=== PATIENT | female | born 1985 | race Caucasian/White ===

== ENCOUNTER 2024-01-11 17:12 | Emergency (ER) | payer BC, SELFPAY ==
[2024-01-11 17:22] VITALS: BP 111/67; PULSE 87; RESP 16; TEMP 36.8; O2SAT 98; BMI 18.6
[2024-01-11 17:31] VITALS: BP 112/69; PULSE 79; RESP 20; O2SAT 97
--- NOTE | 2024-01-11 17:37 | EKG_ITS ---
[address] [address] [address] [address] Test Date: 2024-01-11 Pat Name: Meagan Abreu Department: [facility] Room: Gender: Female Sales Development Executive: PEDRO : 1985 Requested By: Order Number: [id number] Reading MD: Delmer López Measurements Intervals [place] Rate: 78 P: 77 OK: 124 QRS: 86 QRSD: 92 T: 54 QT: 390 QTc: 444 Interpretive Statements Normal sinus rhythm Electronically Signed On 01-14-2024 18:49:53 PST by Delmer López
--- NOTE | 2024-01-11 17:40 | PC.NURSE ---
reports normal resting heart rate is in 80's and today resting heart rate has been in 90's and just to stand heart rate will go up above 100 or more without lots of activity or doing anything. sent her by [email or web address] in wheelchair
[2024-01-11 18:00] VITALS: BP 91/63; PULSE 83; RESP 15; O2SAT 97
[2024-01-11 18:30] VITALS: BP 100/62; PULSE 74; RESP 20; O2SAT 97
--- NOTE | 2024-01-11 18:37 | ED_ITS ---
HPI - Arrhythmia/Palpitations General Chief Complaint: Arrhythmia/Palpitations Stated Complaint: sent by [facility], heart rate issue Time Seen by Provider: 01/11/24 18:09 Source: patient Mode of arrival: Wheelchair History of Present Illness HPI narrative: 38-year-old female referred from walk-in clinic for further evaluation of heart palpitation symptoms. History of anxiety although she feels like her palpitation symptoms are not related to her anxiety, or at least are different than her anxiety symptoms. No associated syncope or presyncope. No associated chest pain. No associated diaphoresis, nausea, vomiting. No focal weakness to face arm or leg. Symptoms are intermittent in nature. No particular activity or position that seems to make the symptoms worse or bring the symptoms on, when present no particular activity or position made the symptoms improve or go away. Denies fevers chills. Denies shortness of breath. Related Data Home Medications Medication Instructions Recorded Confirmed clobetasol 0.05 % topical ointment 1 applic topical DAILY 06/25/23 10/01/23 lorazepam 0.5 mg tablet 0.5 mg PO DAILY PRN 06/25/23 10/01/23 albuterol sulfate 90 mcg/actuation inhalation 10/01/23 10/01/23 aerosol inhaler rizatriptan 5 mg disintegrating mg PO 01/11/24 01/11/24 tablet Previous Rx's Medication Instructions Recorded estradiol 0.05 mg/24 hr semiweekly 1 patch transdermal 2XW #8 ea 06/25/23 transdermal patch (Vivelle-Dot) progesterone micronized 100 mg 100 mg PO BEDTIME #30 caps 06/25/23 capsule (Prometrium) Allergies Allergy/AdvReac Type Severity Reaction Status Date / Time codeine Allergy Severe vomitting Verified 01/11/24 17:21 meperidine [From Demerol] Allergy Severe vomitting Verified 01/11/24 17:21 sumatriptan [From Imitrex] Allergy Severe Swelling Verified 01/11/24 17:21 of Lip/Tongue/Throat Review of Systems Review of Systems Narrative: See HPI Patient History Medical History (Updated 01/11/24 @ 21:23 by Johnathon Lopez MD) Eczema Alopecia Acne Asthma Allergies Anxiety Migraines Chicken pox (~1994) Kidney stones Pituitary adenoma (~2005) Surgical History (Updated 08/08/23 @ 19:10 by Shauna Linn) Anesthesia History of hysterectomy (~2017) S/P foot surgery, right (~2003) S/P foot surgery, left (~2002) Family History (Updated 08/08/23 @ 19:11 by Shauna Linn) Father Stroke Grandfather History of heart disease Grandfather History of heart disease Grandmother Cancer History of heart disease Social History Smoking Status: Current every day smoker Smoking Status: Current every day smoker Exam Narrative Exam Narrative: GENERAL: Well-developed patient, cooperative, no distress HEAD: Atraumatic. Normocephalic. EYES: Pupils equal round and reactive. Extraocular motions intact. No scleral icterus. No injection or drainage. ENT: Nose without bleeding, purulent drainage. Throat without erythema, tonsillar hypertrophy or exudate. Airway patent. NECK: Trachea midline. Non tender CARDIOVASCULAR: Regular rate and rhythm without murmurs, gallops, or rubs. RESPIRATORY: Clear to auscultation. Breath sounds equal bilaterally. No wheezes, rales, or rhonchi. GASTROINTESTINAL: Abdomen soft, non-tender, nondistended. EXTREMITIES: No edema or joint tenderness. BACK: Nontender without deformity or crepitance. No flank tenderness. NEURO: AOx3. Motor functions grossly nonfocal SKIN: No rash or erythema of visible areas Initial Vital Signs Initial Vital Signs: Vital Signs Temperature 98.3 F 01/11/24 17:22 Pulse Rate 87 01/11/24 17:22 Respiratory Rate 16 01/11/24 17:22 Blood Pressure 111/67 01/11/24 17:22 Pulse Oximetry 98 01/11/24 17:22 Oxygen Delivery Method Room Air 01/11/24 17:22 Course Orders Ordered: ED Orders 01/11/24 17:26 EKG-12 Lead Stat 01/11/24 18:56 XR chest 1V Stat EKG-12 Lead Stat 01/11/24 19:26 Complete Blood Count AUTO DIFF Stat 01/11/24 19:50 Comprehensive Metabolic Panel Stat Troponin & CK Cardiac Panel Stat Vital Signs Vital signs: Vital Signs - 8 hr 01/11/24 17:22 01/11/24 17:31 01/11/24 17:31 Temperature 98.3 F Pulse Rate 87 79 Respiratory Rate 16 20 Blood Pressure 111/67 112/69 Pulse Oximetry 98 97 Oxygen Delivery Method Room Air 01/11/24 18:00 11/02/24 18:00 01/11/24 18:30 Temperature Pulse Rate 83 74 Respiratory Rate 15 20 Blood Pressure 91/63 Pulse Oximetry 97 97 Oxygen Delivery Method Room Air 01/11/24 18:30 01/11/24 19:30 01/11/24 19:31 Temperature Pulse Rate 72 70 Respiratory Rate 18 16 Blood Pressure 100/62 113/71 113/71 Pulse Oximetry 98 98 Oxygen Delivery Method Room Air Room Air MDM - Arrhythmia/Palpitations Lab Data Attestation: I reviewed the patient's lab results. Lab results narrative: White blood cell count 9500, hemoglobin 14, platelets adequate. Basic metabolic panel unremarkable. Liver functions normal. Troponin negative/unmeasurable. 01/11/24 19:26 01/11/24 19:50 Labs: Lab Results 01/11/24 01/11/24 Range/Units 19:26 19:50 WBC 9.5 (4.5-11.0) X10^3/uL RBC 4.15 (4.0-5.2) X10^6/uL Hgb 14.0 (12.0-16.0) g/dL Hct 40.2 (36-46) % MCV 97.1 (80-100) fL MCH 33.8 (26-34) PG MCHC 34.8 (30-36) % RDW 12.5 (11.6-14.8) % Plt Count 336 (150-400) X10^3/uL Neut % (Auto) 62.6 (50-75) % Lymph % (Auto) 30.2 (25-40) % [place] % (Auto) 4.7 (3-14) % Eos % (Auto) 1.5 L (2-4) % Baso % (Auto) 1.0 (0-2) % Neut # (Auto) 5900 (6292-3539) /uL Lymph # (Auto) 2900 (8618-5825) /uL [place] # (Auto) 400 (0-900) /uL Eos # (Auto) 100 (0-450) /uL Baso # (Auto) 100 (0-100) /uL Sodium 137 (137-145) mmol/L Potassium 3.5 (3.4-5.1) mmol/L Chloride 107 (98-107) mmol/L Carbon Dioxide 25 (22-32) mmol/L BUN 9 (7-17) mg/dL Creatinine 0.52 (0.52-1.04) mg/dL Estimated GFR > 60 (>60) mL/min BUN/Creatinine Ratio 17.3 (6-22) Glucose 91 (70-100) mg/dL Calcium 9.0 (8.4-10.2) mg/dL Total Bilirubin 0.5 (0.2-1.3) mg/dL AST 21 (14-36) IU/L ALT 12 (<35) IU/L Alkaline Phosphatase 45 (38-126) U/L Total Creatine Kinase 66 (30-135) U/L Troponin I < 0.012 (0.01-0.034) ng/mL Total Protein 6.5 (6.3-8.2) g/dL Albumin 4.2 (3.5-5.0) g/dL Globulin 2.3 (1.7-4.1) g/dL Albumin/Globulin Ratio 1.8 (1.0-2.8) Imaging Data Chest x-ray: Radiologist's Impresson: [place] [address] XRay Report Signed Patient: Meagan Abreu MR#: [id number] : 1985 Acct:[id number] Age/Sex: 38 / F Date of Service: 01/11/24 Loc: Accession Number: [id number] Procedure: XR chest 1V Ordering Provider: Johnathon Lopez MD PROCEDURE: XR CHEST 1V INDICATIONS: chest pain TECHNIQUE: One view of the chest was acquired. COMPARISON: None. FINDINGS: Surgical changes and devices: None. Lungs and pleura: Lungs are clear. No pleural effusions or pneumothorax. Mediastinum: Mediastinal contours appear normal. Heart size is normal. Bones and chest wall: No suspicious bony lesions. Overlying soft tissues appear unremarkable. IMPRESSION: No acute cardiopulmonary abnormality is seen. Approved by: Nico Vargas M.D. on 01/11/2024 at 19:28 ECG Data Attestation: I personally reviewed and interpreted this ECG as follows: Interpretation: Normal sinus rhythm with rate of 78, no obvious ST segment elevation or depression changes. OR 124, QRS 92, QTC 444. MDM Narrative Medical decision making narrative: Irregular heartbeat sensation palpitations, history of anxiety, though patient feels this feels different than her anxiety symptoms. Screening EKG unremarkable. Chest x-ray negative. Labs pending. Her electrolytes unremarkable, troponin negative. Patient did not want to be in the monitoring longer, took herself off ED quality assurance monitor. Reassuring workup thus far, consider further cardiac monitoring as an outpatient, discussed ZIO patch, can be ordered by PCP, also given contact information for local armed security professional on-call tonight. Discharged home, stable, return precautions discussed. Discharge Plan Departure Patient Disposition: Home Clinical Impression: Heart palpitations Activity Restrictions/Additional Instructions: Heart palpitation symptoms, history of anxiety, however these symptoms felt different than anxiety, therefore workup initiated here. On the quality assurance monitor while it was worn there was no ectopy or irregular rhythm. Screening EKG reassuring. Chest x-ray no acute changes. Serum blood tests reassuring. Consider further cardiac monitoring as an outpatient, such as ZIO patch or other mobile device. Discuss further with your regular doctor early next week. Contact information also given for local armed security professional if useful for follow up as well. Return earlier to this/nearest emergency department for any change worsening symptoms or any concerns prior Prescriptions: No Action rizatriptan 5 mg tablet,disintegrating PO estradiol [Vivelle-Dot] 0.05 mg/24 hr patch semiweekly 1 patch transdermal 2XW Qty: 8 12RF Rx Instructions: apply 1 patch for 3 days alternating with 1 patch for 4 days each week for 3 wks per 4-wk cycle progesterone micronized [Prometrium] 100 mg capsule 100 mg PO BEDTIME Qty: 30 12RF lorazepam 0.5 mg tablet 0.5 mg PO DAILY PRN clobetasol 0.05 % ointment 1 applic topical DAILY albuterol sulfate 90 mcg/actuation HFA aerosol inhaler inhalation Referrals: Enrique Ravi MD [Primary Care Provider] - Lulu Hickman DO [Physician] - Stand Alone Forms: Patient Portal/API/Survey
--- NOTE | 2024-01-11 18:56 | DI.RAD.S_ITS ---
PROCEDURE: XR CHEST 1V INDICATIONS: chest pain TECHNIQUE: One view of the chest was acquired. COMPARISON: None. FINDINGS: Surgical changes and devices: None. Lungs and pleura: Lungs are clear. No pleural effusions or pneumothorax. Mediastinum: Mediastinal contours appear normal. Heart size is normal. Bones and chest wall: No suspicious bony lesions. Overlying soft tissues appear unremarkable. IMPRESSION: No acute cardiopulmonary abnormality is seen. Approved by: Nico Vargas M.D. on 01/11/2024 at 19:28
[2024-01-11 19:30] VITALS: BP 113/71; PULSE 72; RESP 18; O2SAT 98
[2024-01-11 19:31] VITALS: BP 113/71; PULSE 70; RESP 16; O2SAT 98
[2024-01-11 19:34] LABS: Add Manual Diff / Slide Review NO; Basophils Absolute Auto 100 /uL (0-100); Eosinophils Absolute Auto 100 /uL (0-450); Eosinophils Percent Auto 1.5 % (2-4); Hematocrit 40.2 % (36-46); Lymphocytes Absolute Auto 2900 /uL (1100-4500); Lymphocytes Percent Auto 30.2 % (25-40); Mean Corpuscular HGB Conc 34.8 % (30-36); Mean Corpuscular Hemoglobin 33.8 PG (26-34); Mean Corpuscular Volume 97.1 fL (80-100); Monocytes Absolute Auto 400 /uL (0-900); Monocytes Percent Auto 4.7 % (3-14); Neutrophils Absolute Auto 5900 /uL (1500-7000); Neutrophils Percent Auto 62.6 % (50-75); Platelet Count 336 X10^3/uL (150-400); Red Blood Cell Count 4.15 X10^6/uL (4.0-5.2); Red Cell Distribution Width 12.5 % (11.6-14.8); White Blood Cell Count 9.5 X10^3/uL (4.5-11.0)
--- NOTE | 2024-01-11 19:34 | PC.NURSE ---
patient/ (via phone) report patient has had episodes of increased heart rate, pale color, feeling very warm especially to stand or exert herself that feels different from when she has anxiety symptoms. They report she has a hx of both anemia and low vitamin d levels. PIV attempted, unable to place, labs obtained LAC.
[2024-01-11 20:06] LABS: Alanine Aminotransferase 12 IU/L (<35); Albumin 4.2 g/dL (3.5-5.0); Albumin Globulin Ratio 1.8 (1.0-2.8); Alkaline Phosphatase 45 U/L (38-126); Aspartate Aminotransferase 21 IU/L (14-36); BUN Creatinine Ratio 17.3 (6-22); Bilirubin Total 0.5 mg/dL (0.2-1.3); Blood Urea Nitrogen 9 mg/dL (7-17); Carbon Dioxide 25 mmol/L (22-32); Chloride 107 mmol/L (98-107); Creatine Kinase 66 U/L (30-135); Estimated Glomerular Filt Rate > 60 mL/min (>60); Globulin 2.3 g/dL (1.7-4.1); Glucose 91 mg/dL (70-100); HEMOLYSIS < 15 (0-50); Potassium 3.5 mmol/L (3.4-5.1); Sodium 137 mmol/L (137-145); Total Protein 6.5 g/dL (6.3-8.2)
[2024-01-11 20:18] LABS: Troponin I < 0.012 ng/mL (0.01-0.034)
== END 2024-01-11 21:36 | disposition home or self-care (01) ==
PROVIDERS: Emergency Provider Emergency Medicine; PCP Internal Medicine
DX: R00.2 Palpitations (principal); R07.9 Chest pain, unspecified
CPT/HCPCS: 36415; 71045; 80053; 82550; 84484; 85025; 93005; 99283; 99284

== ENCOUNTER → 2024-05-07 19:18 | Outpatient (CLI) | payer BC, SELFPAY ==
--- NOTE | 2024-05-07 19:44 | DI.MRI.S_ITS ---
PROCEDURE: MR LUMBAR SPINE WO CON INDICATIONS: Hypesthesia TECHNIQUE: Noncontrast sagittal T1 spin echo and T2 fast echo, sagittal STIR, and T2 fast spin echo through the lumbar spine. In cases with scoliosis, additional coronal T2 fast spin echo may be performed. COMPARISON: None. FINDINGS: Image quality: Excellent. Alignment and Curvature: There is normal bony alignment. Bone Marrow: Marrow is of normal overall signal. No acute vertebral body compression fractures. Spinal Cord: Conus medullaris terminates at the L2 level. Visualized cord demonstrates normal signal and size. Paraspinous Soft Tissues: No paravertebral masses. T12-L1: Normal appearance. L1-L2: Normal appearance. L2-L3: Minimal disc bulge. No canal stenosis or foraminal stenosis. L3-L4: Minimal disc bulge. No canal stenosis or foraminal stenosis. L4-L5: Disc bulge. Facet hypertrophy. No significant canal stenosis or foraminal stenosis. L5-S1: Disc bulge. Early facet hypertrophy. No canal stenosis or foraminal stenosis. IMPRESSION: 1. Multilevel disc bulges and mild lower lumbar facet arthropathy. 2. No canal stenosis or foraminal stenosis. Dictated by: Zi Marin M.D. on 05/08/2024 at 10:41 Approved by: Zi Marin M.D. on 05/08/2024 at 10:44
== END ==
LOC: MRI 19:19
PROVIDERS: PCP Internal Medicine; Referring Provider Obstetrics & Gynecology; Visit Provider Obstetrics & Gynecology
DX: M51.369 Other intervertebral disc degeneration, lumbar region without mention of lumbar back pain or lower extremity pain (principal); M51.379 Other intervertebral disc degeneration, lumbosacral region without mention of lumbar back pain or lower extremity pain; M47.816 Spondylosis without myelopathy or radiculopathy, lumbar region; M47.817 Spondylosis without myelopathy or radiculopathy, lumbosacral region; R20.1 Hypoesthesia of skin
CPT/HCPCS: 72148

== ENCOUNTER → 2024-10-12 08:41 | Outpatient (CLI) | payer BC, SELFPAY ==
[2024-10-12 09:42] LABS: Hematocrit 40.6 % (36-46); Hemoglobin 14.3 g/dL (12.0-16.0); Mean Corpuscular HGB Conc 35.2 % (30-36); Mean Corpuscular Hemoglobin 33.6 PG (26-34); Mean Corpuscular Volume 95.3 fL (80-100); Platelet Count 242 X10^3/uL (150-400)
[2024-10-12 09:51] LABS: Hemoglobin A1C% w Est Avg Glu 5.4 % (4.0-6.0)
[2024-10-12 10:01] LABS: HEMOLYSIS < 15 (0-50); Iron 107 ug/dL (37-170)
[2024-10-12 10:11] LABS: Alanine Aminotransferase 12 IU/L (<35); Albumin 4.7 g/dL (3.5-5.0); Albumin Globulin Ratio 1.9 (1.0-2.8); Alkaline Phosphatase 45 U/L (38-126); Blood Urea Nitrogen 11 mg/dL (7-17); Calcium 9.0 mg/dL (8.4-10.2); Carbon Dioxide 26 mmol/L (22-32); Chloride 107 mmol/L (98-107); Estimated Glomerular Filt Rate > 60 mL/min (>60); Globulin 2.5 g/dL (1.7-4.1); Glucose 92 mg/dL (70-99); HEMOLYSIS < 15 (0-50); Potassium 3.9 mmol/L (3.4-5.1); Sodium 140 mmol/L (137-145); Total Protein 7.2 g/dL (6.3-8.2)
[2024-10-12 10:13] LABS: Percent Iron Saturation 42 % (15-50); Total Iron Binding Capacity 255 ug/dL (265-497); Transferrin 205 mg/dL (206-381)
[2024-10-12 10:19] LABS: T4 Total Thyroxine 6.79 ug/dL (5.5-11.0); Vitamin D 25 Hydroxy (D3) 48.9 ng/mL (30.0-100.0)
[2024-10-12 10:32] LABS: Thyroid Stimulating Hormone 0.588 uIU/mL (0.47-4.68)
[2024-10-12 10:35] LABS: Cortisol AM (Before 10AM) 6.14 ug/dL (4.46-22.7)
[2024-10-12 10:39] LABS: Ferritin 36 ng/mL (6-137)
[2024-10-12 10:58] LABS: Vitamin B12 Reflex MMA if <400 370 pg/mL (239-931)
== END ==
PROVIDERS: PCP Family Medicine; Referring Provider Family Medicine; Visit Provider Family Medicine
DX: Z13.1 Encounter for screening for diabetes mellitus (principal); R53.82 Chronic fatigue, unspecified; R53.83 Other fatigue; G43.909 Migraine, unspecified, not intractable, without status migrainosus
CPT/HCPCS: 36415; 80053; 82306; 82533; 82607; 82627; 82728; 83036; 83540; 83550; 83921; 84436; 84443; 85027; 86140

== ENCOUNTER → 2024-12-14 12:57 | Outpatient (CLI) | payer BC, SELFPAY | PROVIDERS: PCP Family Medicine; Visit Provider Chiropractor | DX: R30.0 Dysuria (principal) | CPT/HCPCS: 87086 ==

== ENCOUNTER → 2024-12-16 16:06 | Outpatient (CLI) | payer BC, SELFPAY ==
[2024-12-29 05:10] LABS: Normetanephrine Total 270 ug/24 hr (131-612); Urine, Metanephrine 73 ug/L (Undefined); Urine, Normetanephrine 146 ug/L (Undefined)
== END ==
PROVIDERS: PCP Family Medicine; Referring Provider Family Medicine; Visit Provider Family Medicine
DX: R51.9 Headache, unspecified (principal); G89.29 Other chronic pain; R00.2 Palpitations
CPT/HCPCS: 83835

== ENCOUNTER → 2025-01-21 19:11 | Outpatient (CLI) | payer BC, SELFPAY ==
--- NOTE | 2025-01-21 19:15 | DI.MRI.S_ITS ---
PROCEDURE: MR HEAD/BRAIN WO/W CON INDICATIONS: Chronic [place], worsening frequency/severity TECHNIQUE: Noncontrast axial T1 spin echo, axial T2 fast spin echo, sagittal and axial FLAIR, coronal T2 fast spin echo, axial gradient echo, axial diffusion and ADC through the brain. After the administration of contrast, axial and coronal and sagittal 3D VIBE or T1 spin echo with fat saturation through the brain. COMPARISON: None. FINDINGS: CSF Spaces: Basal cisterns are patent. No extra-axial fluid collections. Ventricles are normal in size and shape. Brain: No intracranial masses or hemorrhage. Rubio/white matter interface is normal. Brainstem appears normal. Diffusion-weighted sequence is unremarkable without evidence of acute infarct. Normal intravascular flow voids are present. Skull and face: Calvarial marrow is normal in signal. Orbits appear normal. Sinuses: Sinuses and mastoids appear clear. IMPRESSION: Normal MRI brain with and without contrast Approved by: Raul Lopes M.D. on 01/22/2025 at 11:10
== END ==
LOC: MRI 19:14
PROVIDERS: PCP Family Medicine; Referring Provider Family Medicine; Visit Provider Family Medicine
DX: R51.9 Headache, unspecified (principal); G89.29 Other chronic pain; R42 Dizziness and giddiness; R00.2 Palpitations
CPT/HCPCS: 70553; A9579